=== PATIENT | female | born 1940 | race Caucasian/White ===

== ENCOUNTER 2016-12-17 11:37 | Emergency (ER) | payer MEDICARE, OTHER ==
--- NOTE | 2016-12-17 12:21 | ERNOTE ---
Medical Problem HPI - Narrative Date of Service: 12/17/16 - General Chief Complaint: Back Pain Time Seen by Provider: 12/17/16 12:03 Source: patient, RN/MD, RN notes reviewed Exam Limitations: no limitations - Immun/Allergies/Home Medications Allergies/Adverse Reactions: Allergies Sulfa (Sulfonamide Antibiotics) Allergy (Verified 12/17/16 11:59) tamoxifen Allergy (Verified 12/17/16 11:59) Home Medications: HOME MEDICATIONS Acetaminophen [Tylenol] 1,000 mg PO BID 12/17/16 [Last Taken Unknown] Aspirin [Aspirin Enteric Coated] 81 mg PO DAILY 12/17/16 [Last Taken Unknown] Cellulose [Unifiber] 80 gm PO DAILY 12/17/16 [Last Taken Unknown] Esomeprazole Magnesium [Nexium] 40 mg PO DAILY 12/17/16 [Last Taken Unknown] Fexofenadine/Pseudoephedrine [Eloisa-D 12 Hour Tablet] 1 each PO DAILY [Last Taken Unknown] Lisinopril/Hydrochlorothiazide [Lisinopril-Hctz 20-12.5 mg Tab] 1 each PO DAILY 12/17/16 [Last Taken Unknown] Metoprolol Succinate [Toprol Xl] 25 mg PO DAILY 12/17/16 [Last Taken Unknown] Multivitamin [Multivitamins] 1 each PO DAILY 12/17/16 [Last Taken Unknown] Polyethylene Glycol 3350 [Miralax] 17 gm PO DAILY 12/17/16 [Last Taken Unknown] - History of Present History Narrative: Bobbi is a 76 year old female who initially presented to the walk in clinic for rib pain after a fall but was sent here for further evaluation. She fell off of a step on her porch last week. She struck her head on the side of the house. She believes she hit her chest on a railing. She also has an abrasion to her left knee. She is concerned about her ribs because she feels like the pain should be getting better by now. She has pain in the anterior lower ribs bilaterally. She denies any loss of consciousness. She is unsure of the cause of her fall but it seems as though she merely lost her footing. Date (Duration): 12/11/16 Review of Systems - Review of Systems Constitutional: Absent: fever, chills, malaise EYE: Present: no symptoms reported ENT: Present: no symptoms reported Respiratory: Absent: shortness of breath, cough, orthopnea, wheezing Cardiology: Absent: palpitations, syncope Gastrointestinal/Abdominal: Absent: nausea, vomiting, abdominal pain Genitourinary: Present: no symptoms reported Musculoskeletal: Absent: back pain, neck pain Skin: Present: change in color. Absent: rash, lesions, lumps Neurological: Absent: headache, dizziness/light-headedness, weakness, numbness Endocrine: Present: no symptoms reported Hematologic/Lymphatic: Absent: easy bruising, easy bleeding Psych: Present: no symptoms reported - Patient's Past Medical History Patient History - Medical: GERD, Other Patient History - Cardiac/Respiratory: Hypertension Patient History - Cancer: Breast Patient History - Surgical Procedures: Appendectomy, Cataracts, Colonoscopy, D & C LMP (females 10-50): Menopausal - Social History Living Situations: home Smoking Status: Never smoker Alcohol Use: rarely Drug Use: none - Immunizations Immunizations Up to Date: No - last tetanus over 10 yrs ago Physical Exam - Physical Exam General Appearance: Present: wd/wn, alert, no apparent distress, other - Pleasant, appropriately dressed and groomed Head Exam: Present: tenderness - mild, right parietal region. Absent: contusions, ecchymosis, swelling Eye Exam: Normal inspection: bilateral, PERRL: bilateral, EOMI: bilateral Ears, Nose, Throat: Present: normal ENT inspection, normal pharynx Neck: Present: normal inspection, nontender, supple, full range of motion Respiratory: Present: no respiratory distress, normal breath sounds, no accessory muscle use, lungs clear, chest tenderness - bilateral anterior lower ribs with ecchymosis noted Cardiovascular/Chest: Present: no murmur, bradycardia Extremity Exam: Present: normal inspection, non-tender, normal range of motion, no edema Neurological Exam: Present: alert, oriented, normal mood/affect, no motor/ sensory deficits Skin Exam: Present: normal color, warm/dry, other - mild healing abrasion to left anterior knee ED Progress - Vital Signs Patient's Vital Signs:: I have reviewed the patient's vital signs. Vital Signs: Vital Signs 12/17/16 11:42 Temperature 36.0 C L Pulse Rate 48 L Respiratory 12 Rate Blood Pressure 173/70 O2 Sat by Pulse 99 Oximetry - X-Ray X-Ray #1 X-Ray: ribs Interpretation: Reviewed by me X-ray Comments: Bilateral rib xrays show a fracture of #6 on the right and #4 and #5 on the left - Progress/Reassessment Chief Complaint: Back Pain Progress:: Unchanged Departure Clinical Impression: Ribs, multiple fractures Qualifiers: Encounter type: initial encounter Fracture type: closed Laterality: bilateral Qualified Code(s): S22.43XA - Multiple fractures of ribs, bilateral, initial encounter for closed fracture Abrasion of knee, left Qualifiers: Encounter type: initial encounter Qualified Code(s): S80.212A - Abrasion, left knee, initial encounter - Departure Disposition: Home Follow Up Needed Condition: Good Instructions: Rib Fracture Referrals: Maurice Subramanian MD [Primary Care Provider] -
[2016-12-17] MEDS ORDERED: DIPHTH,PERTUSS(ACELL),TET VAC 0.5 ML VIAL IM ONE ×2 (13:15→13:19)
[2016-12-17 13:28] VITALS: BP 172/67
== END 2016-12-17 13:29 | disposition home or self-care (01) ==
LOC: ER 11:37
DX: S22.43XA Multiple fractures of ribs, bilateral, initial encounter for closed fracture (principal); S80.212A Abrasion, left knee, initial encounter; K21.9 Gastro-esophageal reflux disease without esophagitis; I10 Essential (primary) hypertension; Z85.3 Personal history of malignant neoplasm of breast; Z23 Encounter for immunization; W10.8XXA Fall (on) (from) other stairs and steps, initial encounter; Y92.008 Other place in unspecified non-institutional (private) residence as the place of occurrence of the external cause